=== PATIENT | female | born 2000 | race Caucasian/White ===

== ENCOUNTER 2022-12-30 22:27 | Emergency (ER) | payer OTHER, SELFPAY ==
--- NOTE | ~2022-12-30 | US_ITS ---
Pelvic ultrasound. Clinical History: First trimester , evaluate for ectopic Technique: Realtime transabdominal and transvaginal scanning of the pelvis was performed. Color flow Doppler and Doppler spectral analysis were performed. Findings: The uterus is anteverted. The endometrial stripe has a thickness of approximately 21 mm. N o intrauterine gestational sac is identified. The right ovary measures 3.3 x 1.7 x 1.4 cm. No significant right ovarian or adnexal mass is seen. The left ovary measures 2.6 x 1.5 x 1.3 cm. No significant left ovarian or adnexal mass is seen. There is a small amount of free fluid in the cul de sac. Impression: Positive test without intrauterine gestation. Differential diagnosis includes early normal , spontaneous , or nonvisualized ectopic . Correlate clinically. Continued follow-up with serial beta hCG, and repeat ultrasound as warranted, is recommended. Small amount of free fluid in the pelvis, nonspecific. Reviewed, dictated and finalized at location . Impression: Positive test without intrauterine gestation. Differential diagnosis includes early normal , spontaneous , or nonvisualized ectopic . Correlate clinically. Continued follow-up with serial beta hCG, and repeat ultrasound as warranted, is recommended. Small amount of free fluid in the pelvis, nonspecific.
[2022-12-30 22:54] VITALS: BP 123/72; PULSE 83; RESP 18; TEMP 36.6; O2SAT 100
[2022-12-31 03:15] VITALS: BP 124/82; PULSE 70; RESP 20; O2SAT 100
--- NOTE | 2022-12-31 03:16 | PC.NURSE ---
Pt states she was dx with UTI Monday 12/25. Oral antibiotic was started Wednesday night.
--- NOTE | 2022-12-31 04:10 | ED.PREGNANCY ---
HPI - General Chief complaint: Vaginal Bleeding Stated complaint: vaginal bleeding, 6-7 weeks Time Seen by Provider: 12/31/22 03:07 Source: patient and family (mother) Limitations: no limitations History of Present Illness HPI Narrative: Patient presents to the ED with mother for blood on the toilet paper when she wiped her vaginal region after urinating tonight. Notes a scant amount and no further bleeding since despite not wearing a pad and notes no blood in underwear. Notes she is with a urine test at home and LMP was November 12. First . Admits to having an OB appointment 01/07. No follow up yet. Admits to being treated for a UTI currently with antibiotics. Admits to a remote history of STI treated to completion. Denies abnormal vaginal discharge, abdominal pain, recent injuries, chest pain, shortness of breath, palpitations, history of ectopic . Admits to some mild pelvic cramps similar to her history of menses cramps. Admits to prenatals. Relieving factors: none Exacerbating factors: none Associated symptoms: denies other symptoms and vaginal bleeding Related Data Allergies Allergy/AdvReac Type Severity Reaction Status Date / Time No Known Allergies Allergy Verified 12/30/22 23:00 Review of Systems Review of Systems: A 10 system review of systems was completed on the patient and is negative except for what is stated in the HPI. Nursing and ancillary documentation was reviewed. PMFSH Comments At time of signature, I have reviewed and agree with nursing past medical, surgical, social and family history unless otherwise noted. Please see the nursing chart for further information. There is no relevant family history pertinent to the presenting complaint. Exam Narrative: CONST: No acute distress. Well nourished. HENMT: Head is normocephalic and atraumatic. Moist mucous membranes. No posterior oropharynx erythema. EYES: No conjunctival icterus, injection, or pallor. PERRL. NECK: No meningeal signs. RESP: Able to speak in full sentences. Normal respiratory effort. CTAB. CARDIO: Regular rate. Regular rhythm. 2+ DP and radial pulses bilaterally. GI: Nondistended. No tenderness to palpation. Soft. : No CVA tenderness to palpation. SKIN: No rashes or lesions noted on exposed skin. NEURO: Oriented x3. Moves all extremities. EXTREM: No pedal edema. PSYCH: Normal affect. Course Vital Signs Vital signs: Vital Signs Temperature 97.8 F 12/30/22 22:54 Pulse Rate 83 12/30/22 22:54 Respiratory Rate 18 12/30/22 22:54 Blood Pressure 123/72 12/30/22 22:54 Pulse Oximetry 100 12/30/22 22:54 Oxygen Delivery Room Air 12/30/22 22:54 Temperature 97.8 F 12/30/22 22:54 Pulse Rate 66 12/31/22 05:17 Respiratory Rate 18 12/31/22 05:17 Blood Pressure 124/84 12/31/22 05:17 Pulse Oximetry 100 12/31/22 05:17 Oxygen Delivery Room Air 12/30/22 22:54 MDM - OB/Uterine Contractions MDM Narrative Medical decision making narrative: Patient presents as noted above, vitals stable, examination normal. Bedside test is positive. Denies active bleeding. Discussed plan to obtain laboratory analysis and a pelvic ultrasound. Patient given a Tylenol 1 g PO. Differential diagnosis includes but not limited to ectopic , retained products of conception, spontaneous , and normal first trimester bleeding. We discussed a pelvic examination and the information it may provide and patient elected to follow up with her OBGYN to have one done and does not want one today, which is reasonable. Patient understands that she will need to immediately return to the ED for any new or concerning symptoms, especially vaginal bleeding or abdominal pain. PAtient and mother informed of results, potential diagnosis, condition explained. Patient and mother counselled extensively on the importance of obtaining a repeat hCG in 2 days and following up with OBGYN
[2022-12-31] MEDS: LACTATED RINGERS 1,000 ML 999 ML IV CONT (04:54)
[2022-12-31 05:05] LABS: Basophils Percent Auto 0.7 % (0.2-1.2); Eosinophils Percent Auto 0.4 % (0-4.4); Hematocrit 34.1 % (37.0-47.0); Hemoglobin 11.8 g/dL (12.0-15.0); Immature Granulocyte Absolute 0.01 K/mm3 (0.00-0.031); Immature Granulocyte Percent A 0.2 % (0-0.5); Lymphocytes Absolute Auto 1.35 K/mm3 (0.9-3.2); Lymphocytes Percent Auto 29.3 % (18.3-44.2); Mean Corpuscular HGB Conc 34.6 g/dl (32-36); Mean Corpuscular Hemoglobin 31.9 pg (26-34); Mean Corpuscular Volume 92.2 fl (80-100); Monocytes Absolute Auto 0.7 K/mm3 (0.1-0.6); Monocytes Percent Auto 16.1 % (2.6-8.5); Neutrophils Absolute Auto 2.5 K/mm3 (1.3-6.7); Neutrophils Percent Auto 53.3 % (45.5-73.1); Platelet Count Result 175 k/mm3 (150-375); Red Cell Distribution Width 11.3 % (11.5-14.5); White Blood Count 4.6 K/mm3 (4.5-10.0)
[2022-12-31 05:12] LABS: Appearance Urine Cloudy (Clear); Bacteria Urine None Seen /hpf; Bilirubin Urine Negative (Negative); Blood Urine 2+ (Negative); Color Urine Yellow (Yellow); Glucose Urine UA Negative (Negative); Ketones Urine Negative (Negative); Leukocyte Esterase Ur Negative LEU/UL (Negative); Nitrate Urine Negative (Negative); Non Pathogenic Casts 0-2; Protein Urine Negative (Negative); RBC Urine 0-2 /hpf (0-2); Specific Grav Ur 1.028 (1.001-1.035); Squamous Epithelial Cell Urine Few /hpf (Few); Urobilinogen Urine 0.2 mg/dL (<2.0); WBC Urine 0-5 /hpf; pH Urine 6.5 (5.0-9.0)
[2022-12-31 05:14] LABS: Add Urine Microscopic? YES
[2022-12-31 05:17] VITALS: BP 124/84; PULSE 66; RESP 18; O2SAT 100
== END 2022-12-31 07:35 | disposition home or self-care (01) ==
PROVIDERS: Emergency Provider Student in an Organized Health Care Education/Training Program
DX: O20.0 Threatened abortion (principal); Z3A.01 Less than 8 weeks gestation of pregnancy
CPT/HCPCS: 36415; 76801; 76817; 81001; 81025; 84702; 85025; 86850; 86900; 86901; 96360; 99284; J7120

== ENCOUNTER 2023-01-01 13:20 | Emergency (ER) | payer OTHER, SELFPAY ==
--- NOTE | ~2023-01-01 | US_ITS ---
EXAMINATION: US OB transvaginal DATE: 01/01/2023 16:07 INDICATION: Concern for ectopic during first trimester TECHNIQUE: Real-time pelvic transabdominal and transvaginal ultrasound was performed. COMPARISON: 12/31/2022 FINDINGS: The uterus measures 8.5 x 4.3 x 6.2 cm. No intrauterine gestational sac is identified. The endometrial complex measures 1.6 cm. The right ovary measures 3.0 x 1.8 x 1.4 cm. The left ovary waqar ures 2.7 x 1.3 x 2.1 cm. There is normal vascular flow in the ovaries. There is a small amount of unc hanged free fluid in the pelvis. IMPRESSION: 1. of unknown location. Although no intrauterine gestational sac is seen, this may be due t o early gestation. If the patient is clinically stable, recommend followup with serial beta-hCG and u ltrasound. Reviewed, dictated and finalized at location B. IMPRESSION: 1. of unknown location. Although no intrauterine gestational sac is s een, this may be due to early gestation. If the patient is clinically stable, r ecommend followup with serial beta-hCG and ultrasound.
[2023-01-01 13:21] VITALS: BP 134/83; PULSE 77; RESP 14; TEMP 36.6; O2SAT 100
[2023-01-01] MEDS: ACETAMINOPHEN 500 MG TABLET 1000 MG PO (17:07)
--- NOTE | 2023-01-01 17:15 | ED.FEMALEGU ---
HPI - Female Genitourinary General Chief complaint: Vaginal Bleeding Stated complaint: anus pain, abd pain Time Seen by Provider: 01/01/23 14:10 History of Present Illness HPI Narrative: Patient is a 22-year-old female who presents ER with concern for ectopic . Patient is G1, P0. LMP was in mid to late October 2022. Unknown date. Was seen 2 nights ago with a positive test. Beta hCG was 900. She had an ultrasound that did not show an IUP. She was given the name of an OB she can follow-up with. She denies having any establish care at this time. No vaginal bleeding or vaginal discharge. She had some pain this morning that went into her anus that concerned her. She has no pain at this time. Related Data Allergies Allergy/AdvReac Type Severity Reaction Status Date / Time No Known Allergies Allergy Verified 12/30/22 23:00 Review of Systems Constitutional: Constitutional: Denies chills and Denies fatigue Gastrointestinal: Gastrointestinal: Denies abdominal pain, Denies diarrhea, Denies nausea and Denies vomiting Genitourinary: Genitourinary: Denies abnormal vaginal bleeding, Denies nocturia, Denies dysuria, Reports pelvic pain and Denies vaginal discharge Musculoskeletal: Musculoskeletal: Reports no additional musculoskeletal complaints PMFSH Past Medical History Medical History (Updated 01/01/23 @ 17:18 by Sterling Baker MD) Healthy female adult Surgical History Surgical History (Updated 01/01/23 @ 17:16 by Sterling Baker MD) No history of previous surgery Exam Narrative: GENERAL: Well-appearing, well-nourished, and in no acute distress. HEAD: Normocephalic, atraumatic. ENT: Mucous membranes moist. NECK: Supple. CHEST: Clear to auscultation. No respiratory distress. HEART: Regular rate and rhythm. Normal peripheral pulses. ABDOMEN: Soft, nontender, nondistended. EXTREMITIES: Normal range of motion. No edema. SKIN: Warm, dry, no rash. NEURO: Alert and oriented x3. PSYCH: Normal mood and affect. Course Course Emergency Course: Patient resting comfortably. Discussed case with Dr. Guillen who would like patient follow-up in clinic next week. Discussed that she could call him with any concerns. Patient comfortable with plan. Discharge. Vital Signs Vital signs: Vital Signs Temperature 97.9 F 01/01/23 13:21 Pulse Rate 77 01/01/23 13:21 Respiratory Rate 14 01/01/23 13:21 Blood Pressure 134/83 01/01/23 13:21 Pulse Oximetry 100 01/01/23 13:21 Oxygen Delivery Room Air 01/01/23 13:21 Temperature 97.9 F 01/01/23 13:21 Pulse Rate 70 01/01/23 18:07 Respiratory Rate 15 01/01/23 18:07 Blood Pressure 114/78 01/01/23 18:07 Pulse Oximetry 100 01/01/23 18:07 Oxygen Delivery Room Air 01/01/23 13:21 MDM - Female Genitourinary Lab Data Labs: Lab Results 01/01/23 Range/Units 13:45 Beta HCG, Quant 1218.60 mIU/ML Discharge Plan Discharge Clinical Impression: of unknown anatomic location Patient Disposition: Home, Self-Care Condition: Stable Instructions: Threatened Miscarriage (ED), (ED) Additional Instructions: If you have additional concerns please contact the physician listed below. They will be able to determine whether you need to return to the ER but most likely you will only need outpatient follow-up. You should return to the ER if you have severe uncontrolled pain, you cannot keep down food/water/medication, you lose consciousness, or you have additional concerns. Prescriptions: No Action acetaminophen 500 mg tablet 500 mg PO Q6H PRN (Reason: pain) Qty: 30 0RF Follow-up/Referrals: PHYSICIAN,IMPROVEMENT ADVISOR [Primary Care Provider] - Santana Guillen MD [Physician] - 3 Days
[2023-01-01 18:07] VITALS: BP 114/78; PULSE 70; RESP 15; O2SAT 100
== END 2023-01-01 18:08 | disposition home or self-care (01) ==
PROVIDERS: Emergency Provider Emergency Medicine
DX: O36.80X0 Pregnancy with inconclusive fetal viability, not applicable or unspecified (principal); Z3A.00 Weeks of gestation of pregnancy not specified
CPT/HCPCS: 36415; 76817; 84702; 99284; A9270

== ENCOUNTER 2023-01-10 21:45 | Emergency (ER) | payer OTHER, SELFPAY ==
--- NOTE | ~2023-01-10 | US_ITS ---
Pelvic ultrasound. Clinical History: First trimester , pelvic pain Technique: Realtime transabdominal and transvaginal scanning of the pelvis was performed. Color flow Doppler and Doppler spectral analysis were performed. Findings: The uterus is anteverted. The endometrial stripe has a thickness of 6 mm. No intrauterine gestational sac is identified. The right ovary measures 3.3 x 2.5 x 1.8 cm. No significant right ovarian or adnexal mass is seen. The left ovary measures 2.9 x 1.6 x 2.0 cm. No significant left ovarian or adnexal mass is seen. Vascular flow present in both ovaries on Doppler spectral analysis. There is small amount of free fluid in the cul de sac. Impression: Positive test without intrauterine gestational sac. Differential diagnosis includes early n ormal , spontaneous , or nonvisualized ectopic . Correlate clinically. Cont inued follow-up with serial beta hCG, and repeat ultrasound as warranted, is advised. Small amount of free fluid in the pelvis, nonspecific. Reviewed, dictated and finalized at location . Impression: Positive test without intrauterine gestational sac. Differential diag nosis includes early normal , spontaneous , or nonvisualized e ctopic . Correlate clinically. Continued follow-up with serial beta hC G, and repeat ultrasound as warranted, is advised. Small amount of free fluid in the pelvis, nonspecific.
[2023-01-10 21:47] VITALS: BP 122/65; PULSE 66; RESP 14; TEMP 37.1; O2SAT 98
--- NOTE | 2023-01-10 22:13 | ED.PREGNANCY ---
HPI - General Chief complaint: Vaginal Bleeding Stated complaint: and bleeding Time Seen by Provider: 01/10/23 22:13 Source: patient and old records reviewed Mode of arrival: ambulatory Limitations: no limitations History of Present Illness HPI Narrative: Patient is a 22 y/o female who presents to the ED with c/o vaginal bleeding. Patient reports she recently found out she was within the last 2 weeks. Her last normal menstrual cycle was November 12. She is typically regular with her cycles. Over the last couple weeks she has had intermittent lower abdominal cramping and vaginal spotting. She has been seen in the ED here for the symptoms, though the ultrasounds performed here were unable to visualize any intrauterine gestation. Patient does not currently have an CLINICAL ORTHOPTIST. This makes her G1, P0. Tonight, she noticed worsening cramping throughout her lower abdomen in addition to increased bleeding. She has been passing clots. She did pass a large blood clot prior to arrival which she brought to the ED. She notes that this clot appeared tissue-like. She denies current pain. Denies nausea or vomiting. Denies urinary complaints. Related Data Home Medications Medication Instructions Recorded Confirmed No Home Medications 01/04/23 01/04/23 Allergies Allergy/AdvReac Type Severity Reaction Status Date / Time No Known Allergies Allergy Verified 01/04/23 09:56 Review of Systems Review of Systems: CONSTITUTIONAL: Denies fever, chills, or sweats. CARDIOVASCULAR: Denies chest pain. RESPIRATORY: Denies dyspnea. GASTROINTESTINAL: See HPI. GENITOURINARY: See HPI. SKIN: Denies rash or itching. MUSCULOSKELETAL: Denies back pain, joint pain, or myalgia. All systems reviewed & are unremarkable except as noted in HPI and below PMFSH Past Medical History Medical History Healthy female adult Surgical History Surgical History No history of previous surgery Family History Family History Mother Heart disease Father Diabetes mellitus Social History Social History Smoking status: Former smoker Tobacco type: e-cigarettes/vaping Alcohol intake: never Substance use: former Substance use type: marijuana Lack of Transportation: No Lack of Food: Sometimes True Current Housing: I Have Housing Concerned About Future Housing: Decline to Answer Difficulty Paying Gas/Electric Bills: No Difficulty Paying for Meds: No Currently Unemployed: No Education: High School Diploma/GED Difficulty w/ Childcare or Family Care: No Living arrangements: with family Occupation/Education: occupation Gender identity (if verbalized by the patient): Female Sexual Orientation (if Verbalized by the Patient): Straight or Heterosexual Exam Narrative: GENERAL: Well appearing, well-nourished, non-toxic, in no acute distress. HEAD: Normocephalic, atraumatic. NECK: Supple. No adenopathy, no masses. RESPIRATORY: Airway patent, respirations nonlabored. Clear to auscultation bilaterally, no rales, rhonchi, wheezing. CARDIOVASCULAR: Regular rate and rhythm without murmurs, rubs, or gallops. Peripheral pulses 2+ and equal bilaterally. ABDOMINAL: Soft, no significant tenderness throughout abdomen. Nondistended, no hepatosplenomegaly. Normoactive BS. PELVIC: Normal external genitalia. Cervix appears normal, does not appear definitively open. Small amount of mucousy bloody discharge present in vaginal vault, no evidence of hemorrhage or pooling of fluid. No clots noted. No significant CMT. MUSCULOSKELETAL: Moves all extremities. Strength/ROM intact without gross deformities. SKIN: Warm, dry, normal color. No rashes. NEURO: A&O X3. Speech clear. Cranial
[2023-01-10 22:33] LABS: Basophils Absolute Auto 0.1 K/mm3 (0.0-0.1); Basophils Percent Auto 0.7 % (0.2-1.2); Eosinophils Absolute Auto 0.1 K/mm3 (0-0.3); Eosinophils Percent Auto 1.1 % (0-4.4); Hematocrit 34.6 % (37.0-47.0); Hemoglobin 11.9 g/dL (12.0-15.0); Immature Granulocyte Absolute 0.01 K/mm3 (0.00-0.031); Immature Granulocyte Percent A 0.1 % (0-0.5); Lymphocytes Absolute Auto 2.26 K/mm3 (0.9-3.2); Lymphocytes Percent Auto 30.4 % (18.3-44.2); Mean Corpuscular HGB Conc 34.4 g/dl (32-36); Mean Corpuscular Hemoglobin 32.1 pg (26-34); Mean Corpuscular Volume 93.3 fl (80-100); Mean Platelet Volume 10.2 fl (7.4-10.4); Monocytes Absolute Auto 0.4 K/mm3 (0.1-0.6); Monocytes Percent Auto 5.8 % (2.6-8.5); Neutrophils Absolute Auto 4.6 K/mm3 (1.3-6.7); Neutrophils Percent Auto 61.9 % (45.5-73.1); Platelet Count Result 220 k/mm3 (150-375); Red Blood Count 3.71 M/mm3 (4.2-5.4); Red Cell Distribution Width 11.5 % (11.5-14.5); White Blood Count 7.4 K/mm3 (4.5-10.0)
--- NOTE | 2023-01-10 22:41 | PC.NURSE ---
Patient taken by aircraft avionics technician in wheelchair to ultrasound.
[2023-01-10 22:51] LABS: Appearance Urine Turbid (Clear); Bacteria Urine None Seen /hpf; Bilirubin Urine Negative (Negative); Blood Urine 3+ (Negative); Color Urine Yellow (Yellow); Glucose Urine UA Negative (Negative); Ketones Urine Negative (Negative); Leukocyte Esterase Ur Negative LEU/UL (Negative); Nitrate Urine Negative (Negative); Non Pathogenic Casts 0-2; Protein Urine Negative (Negative); RBC Urine >100 /hpf (0-2); Specific Grav Ur 1.022 (1.001-1.035); Squamous Epithelial Cell Urine None seen /hpf (Few); Urobilinogen Urine 0.2 mg/dL (<2.0); WBC Urine 0-5 /hpf; pH Urine 7.5 (5.0-9.0)
[2023-01-10 23:06] LABS: Add Urine Microscopic? YES
[2023-01-11] MEDS: ACETAMINOPHEN 500 MG TABLET 1000 MG PO (00:17)
== END 2023-01-11 01:09 | disposition home or self-care (01) ==
PROVIDERS: Emergency Medicine; Emergency Provider Physician Assistant
DX: O03.9 Complete or unspecified spontaneous abortion without complication (principal)
CPT/HCPCS: 36415; 76801; 76817; 81001; 84702; 85025; 85461; 86850; 86900; 86901; 99284; A9270

== ENCOUNTER 2024-08-29 12:50 | Emergency (ER) | payer SELFPAY ==
--- NOTE | ~2024-08-29 | XR_ITS ---
EXAMINATION: XR chest 2V 08/29/2024 14:01 INDICATION: Lightheadedness and chest discomfort PROCEDURE: 2 view chest COMPARISON: No prior studies for comparison. FINDINGS: The lungs are clear. The cardiomediastinal silhouette is within normal limits. There are no pleural effusions. There is no pneumothorax suspected. IMPRESSION: 1: NO ACUTE CARDIOPULMONARY DISEASE. Reviewed, dictated and finalized at location A.
--- NOTE | 2024-08-29 12:58 | ECG_ITS ---
Test Date: 2024-08-29 13:01:58 Measurements Intervals [place] Rate: 72 P: 48 NE: 158 QRS: 41 QRSD: 85 T: 60 QT: 356 QTc: 391 Interpretive Statements SINUS RHYTHM No previous ECG available for comparison Electronically Signed On 08-29-2024 14:35:51 CDT by Kellee Dukes M.D.
[2024-08-29 12:59] VITALS: BP 127/73; PULSE 79; RESP 16; TEMP 36.8; O2SAT 100
--- OUTSIDE RECORDS SUMMARY | 2024-08-29 13:03 | XMS_ITS | CONTINUITY OF CARE DOCUMENT ---
Author Name kaiden richey Address Unknown Organization [facility] Office Address [address] [place] [address] Phone [phone] Care Team Providers Care Public Health Training Assistant Name Role Phone Alexi Hercules MD Unavailable [phone] Alexi Hercules MD Unavailable [phone] INSURANCE PROVIDERS Payer name Policy type / Coverage type [place] party ID [id number] [id number]
--- OUTSIDE RECORDS SUMMARY | 2024-08-29 13:45 | XMS_ITS | CONTINUITY OF CARE DOCUMENT ---
Author Name kaiden richey Address Unknown Organization [facility] Office Address [address] [place] [address] Phone [phone] Care Team Providers Care Android Software Engineer Name Role Phone Alexi Hercules MD Unavailable Alexi Hercules MD Unavailable [phone] INSURANCE PROVIDERS Payer name Policy type / Coverage type [place] party ID [id number] [id number]
[2024-08-29 14:16] LABS: BEDSIDEPREGUCG Negative (Negative)
[2024-08-29 14:21] LABS: Add Urine Microscopic? NO; Appearance Urine Clear (Clear); Basophils Absolute Auto 0.1 K/mm3 (0.0-0.1); Basophils Percent Auto 1.3 % (0.2-1.2); Bilirubin Urine Negative (Negative); Blood Urine Negative (Negative); Color Urine Yellow (Yellow); Eosinophils Absolute Auto 0.1 K/mm3 (0-0.3); Eosinophils Percent Auto 2.1 % (0-4.4); Glucose Urine UA Negative (Negative); Hematocrit 40.2 % (37.0-47.0); Hemoglobin 13.4 g/dL (12.0-15.0); Immature Granulocyte Absolute 0.01 K/mm3 (0.00-0.031); Immature Granulocyte Percent A 0.2 % (0-0.5); Ketones Urine Negative (Negative); Leukocyte Esterase Ur Negative LEU/UL (Negative); Lymphocytes Absolute Auto 1.35 K/mm3 (0.9-3.2); Lymphocytes Percent Auto 25.5 % (18.3-44.2); Mean Corpuscular HGB Conc 33.3 g/dl (32-36); Mean Corpuscular Hemoglobin 31.2 pg (26-34); Mean Corpuscular Volume 93.7 fl (80-100); Mean Platelet Volume 10.6 fl (7.4-10.4); Monocytes Absolute Auto 0.4 K/mm3 (0.1-0.6); Monocytes Percent Auto 7.5 % (2.6-8.5); Neutrophils Absolute Auto 3.4 K/mm3 (1.3-6.7); Neutrophils Percent Auto 63.4 % (45.5-73.1); Nitrate Urine Negative (Negative); Platelet Count Result 200 k/mm3 (150-375); Protein Urine Negative (Negative); Red Blood Count 4.29 M/mm3 (4.2-5.4); Red Cell Distribution Width 11.9 % (11.5-14.5); Specific Grav Ur 1.015 (1.001-1.035); Urobilinogen Urine 0.2 mg/dL (<2.0); White Blood Count 5.3 K/mm3 (4.5-10.0); pH Urine 5.5 (5.0-9.0)
[2024-08-29 14:29] LABS: Alanine Aminotransferase 19 U/L (6-35); Albumin Level 4.8 g/dL (3.5-5.1); Alkaline Phosphatase 58 U/L (38-126); Anion Gap 8 mmol/L (4-12); Aspartate Amino Transferase 20 U/L (14-36); Bilirubin,Total 0.3 mg/dL (0.2-1.3); Blood Urea Nitrogen 7 mg/dL (7-17); Calcium 8.8 mg/dL (8.4-10.2); Carbon Dioxide 26 mmol/L (22-30); Chloride 105 mmol/L (98-107); Estimated CRCL calculation 127 ml/min; Estimated Glomerular Filt Rate > 60; Glucose 80 mg/dL (65-110); Potassium 4.1 mmol/L (3.4-5.0); Sodium 139 mmol/L (137-145)
--- NOTE | 2024-08-29 14:35 | ED_ITS ---
HPI - Anxiety General Chief Complaint: Anxiety Stated Complaint: Woke feeling weird -some lightheadedness Time Seen by Provider: 08/29/24 13:27 Source: patient Mode of arrival: ambulatory Limitations: no limitations History of Present Illness HPI narrative: This is a 24-year-old female, with no significant past medical history who presents to the emergency department complaining of intermittent lightheadedness. The patient states she woke this morning and felt ?weird.? While walking, she felt somewhat lightheaded with an unusual though not painful sensation in the chest. She states she also feels shaky. She denies nausea, vomiting, bleeding or recent illness. She denies taking medications or supplements regularly. She has no other complaints at this time. Related Data Home Medications ?Medication ?Instructions ?Recorded ?Confirmed ?Last Taken ?Type No Home Medications 01/04/23 01/04/23 Unknown History Allergies Allergy/AdvReac Type Severity Reaction Status Date / Time No Known Allergies Allergy Verified 08/29/24 12:51 Review of Systems 2 Review of Systems: Last menstrual period June 2024 All systems reviewed & are unremarkable except as noted in HPI and below PMFSH Past Medical History Medical History Healthy female adult Surgical History Surgical History No history of previous surgery Family History Family History Mother Heart disease Father Diabetes mellitus Social History Social History Smoking status: Former smoker Tobacco type: e-cigarettes/vaping Alcohol intake: never Substance use: former Substance use type: marijuana Lack of Transportation: No Lack of Food: Sometimes True Current Housing: I Have Housing Concerned About Future Housing: Decline to Answer Difficulty Paying Gas/Electric Bills: No Difficulty Paying for Meds: No Currently Unemployed: No Education: High School Diploma/GED Difficulty w/ Childcare or Family Care: No Living arrangements: with family Occupation/Education: occupation Gender identity (if verbalized by the patient): Female Sexual Orientation (if Verbalized by the Patient): Straight or Heterosexual Exam 2 Narrative: GENERAL: Well-developed, well-nourished, and in no acute distress. HEAD: Normocephalic, atraumatic. EYES: PERRLA and EOMI. ENT: Nares clear, no rhinorrhea or epistaxis. Mucous membranes moist. Oropharynx without tonsillar hypertrophy exudate or other lesions. CHEST: Clear to auscultation. No respiratory distress. No wheezes rales or rhonchi HEART: Regular rate and rhythm. No murmur heard. Normal peripheral pulses. ABDOMEN: Soft, nontender, nondistended, normal active bowel sounds. EXTREMITIES: Normal range of motion. No edema. SKIN: Warm, dry, no rash. NEURO: Alert and oriented x3. No focal deficit. Moving all 4 limbs spontaneously PSYCH: Normal mood and affect. Course Course Emergency Course: 14:35 -CBC unremarkable. Chemistries within normal limits. Urinalysis not concerning for urinary tract infection. test negative. Chest x-ray not concerning for acute cardiopulmonary process. EKG unremarkable. I do not suspect an active ongoing physical process. Will discharge with recommendation for primary care follow-up. I discussed the findings and recommendations with the patient. Discussed return and emergency precautions including signs/symptoms of arrhythmia, ACS some inspiratory distress. The patient voiced understanding and agreement with the plan. All questions answered to her satisfaction. Vital Signs Vital signs: Vital Signs Temperature 98.2 F 08/29/24 12:59 Pulse Rate 79 08/29/24 12:59 Respiratory Rate 16 08/29/24 12:59 Blood Pressure 127/73 08/29/24 12:59 Pulse Oximetry 100 08/29/24 12:59 Oxygen Delivery Room Air 08/29/24 12:59 Temperature 98.2 F 08/29/24 12:59 Pulse Rate 79 08/29/24 12:59 Respiratory Rate 16 08/29/24 12:59 Blood Pressure 127/73 08/29/24 12:59 Pulse Oximetry 100 08/29/24 12:59 Oxygen Delivery Room Air 08/29/24 12:59 MDM - Anxiety MDM Narrative Medical decision making narrative: Plan: Labs, imaging, EKG, reassess Differential Diagnosis Differential diagnosis: Likely acute anxiety and other (, hypoglycemia, metabolic abnormality, dehydration, pneumothorax, arrhythmia, other) Lab Data 08/29/24 14:14 08/29/24 14:14 Labs: Lab Results 08/29/24 Range/Units 14:14 WBC 5.3 (4.5-10.0) K/mm3 RBC 4.29 (4.2-5.4) M/mm3 Hgb 13.4 (12.0-15.0) g/dL Hct 40.2 (37.0-47.0) % MCV 93.7 (80-100) fl MCH 31.2 (26-34) pg MCHC 33.3 (32-36) g/dl RDW 11.9 (11.5-14.5) % Plt Count 200 (150-375) k/mm3 MPV 10.6 H (7.4-10.4) fl Immature Gran % (Auto) 0.2 (0-0.5) % Neut % (Auto) 63.4 (45.5-73.1) % Lymph % (Auto) 25.5 (18.3-44.2) % [place] % (Auto) 7.5 (2.6-8.5) % Eos % (Auto) 2.1 (0-4.4) % Baso % (Auto) 1.3 H (0.2-1.2) % Lymph # (Auto) 1.35 (0.9-3.2) K/mm3 [place] # (Auto) 0.4 (0.1-0.6) K/mm3 Eos # (Auto) 0.1 (0-0.3) K/mm3 Baso # (Auto) 0.1 (0.0-0.1) K/mm3 Abs Immat Gran (auto) 0.01 (0.00-0.031) K/mm3 Absolute Neuts (auto) 3.4 (1.3-6.7) K/mm3 Absolute Nucleated RBC 0.000 (0.0-0.012) K/mm3 Nucleated RBC % 0.0 (0.0-0.2) % Sodium 139 (137-145) mmol/L Potassium 4.1 (3.4-5.0) mmol/L Chloride 105 (98-107) mmol/L Carbon Dioxide 26 (22-30) mmol/L Anion Gap 8 (4-12) mmol/L BUN 7 (7-17) mg/dL Creatinine 0.65 L (0.7-1.0) mg/dL Estim Creat Clear Calc 127 ml/min Estimated GFR > 60 (59 - ) Glucose 80 (65-110) mg/dL Calcium 8.8 (8.4-10.2) mg/dL Total Bilirubin 0.3 (0.2-1.3) mg/dL AST 20 (14-36) U/L ALT 19 (6-35) U/L Alkaline Phosphatase 58 (38-126) U/L Total Protein 8.0 (6.3-8.2) g/dL Albumin 4.8 (3.5-5.1) g/dL Urine Color Yellow (Yellow) Urine Appearance Clear (Clear) Urine pH 5.5 (5.0-9.0) Ur Specific [place] 1.015 (1.001-1.035) Urine Protein Negative (Negative) mg/dL Urine Glucose (UA) Negative (Negative) mg/dL Urine Ketones Negative (Negative) mg/dL Ur Blood (Man) Negative (Negative) Urine Nitrate Negative (Negative) Urine Bilirubin Negative (Negative) Urine Urobilinogen 0.2 (<2.0) mg/dL Leukocyte Esterase Rfl Negative (Negative) SASHA/UL POC Urine HCG, Qual Negative (Negative) ECG Data EKG #1: Attestation: I personally reviewed and interpreted this ECG as follows: ECG completion date: 08/29/24 ECG completion time: 13:01 Prior ECG tracings: not available for review Interpretation: Sinus rhythm, rate 72, normal axis, no ST segment elevations or T-wave inversions concerning for ischemia, normal intervals with QTC of 391. Discharge Plan Discharge Clinical Impression: Intermittent lightheadedness Patient Disposition: Home Condition: Stable Instructions: Antibiotic Form, Lightheadedness (ED) Additional Instructions: You were seen in the emergency department. Your labs are not concerning for low blood counts or liver kidney injury. A chest x-ray was unremarkable. Your EKG appears normal. The cause of your symptoms is unclear. I recommend following up with a primary care doctor. If you develop chest pain, shortness of breath, loss of consciousness, difficulty breathing, or if you have other emergent concerns for life, limb, or eyesight, return to the emergency department. Patient Language: Urdu Prescriptions: No Action No Home Medications Follow-up/Referrals: Vu Kurtz MD [Physician] - 2 Weeks UNKNOWN,DOCTOR [Primary Care Provider] - Time of Disposition: 14:37
== END 2024-08-29 14:56 | disposition home or self-care (01) ==
PROVIDERS: Emergency Medicine; Emergency Provider Preventive Medicine Aerospace Medicine
DX: R42 Dizziness and giddiness (principal)
CPT/HCPCS: 36415; 71046; 80053; 81003; 81025; 85025; 93005; 99283